=== PATIENT | female | born 1950 | race Caucasian/White ===

== ENCOUNTER → 2016-08-16 11:07 | Day surgery (SDC) | payer BC ==
[~2016-08-16 11:07] MED LIST: Lidocain 1% EPI 1:100,000 * 30 ML MDV ONE; Sodium Bicarbonate 8.4% SYR* 10 ML SYRINGE ONE
[2016-08-16 13:21] VITALS: BP 152/63
--- NOTE | 2016-08-17 02:16 | OP ---
DATE OF OPERATION: 08/16/16 [facility] DATE OF : 54 SURGEON: Anthony Eduardo MD PV INSTALLER TECH: SNOW Mota ANESTHESIOLOGIST: None. ANESTHESIA: Local only with 1% lidocaine with epinephrine. PRE-OP DIAGNOSIS: Right middle trigger finger. POST-OP DIAGNOSIS: Right middle trigger finger. OPERATIVE PROCEDURE: Right middle finger A1 Leeanne release. INDICATIONS: Kailyn is a 66-year-old female. She has had a couple of years of triggering in the finger. She has failed to respond to nonoperative treatment. We talked about risks and benefits and she desired to proceed with A1 leeanne release of the right middle finger. ESTIMATED BLOOD LOSS: 5 mL. COMPLICATIONS: None. FINDINGS: As expected. DESCRIPTION OF PROCEDURE: Kailyn was seen in the preoperative holding area and the correct side and site were marked. We had a time-out and then I injected the operative area with 1% lidocaine with epinephrine. We then came back to the operating room about 10 to 15 minutes later and the arm was prepped and draped in the usual fashion and a formal time-out was performed. A 1 cm longitudinal incision was made over the A1 leeanne of the right middle finger. The tenotomy scissors were used to bluntly dissect the soft tissue off of the flexor tendon sheath. Ragnell retractors were used to expose the sheath and then the 15 blade was used to longitudinally incise the A1 leeanne. The release was extended a little proximally and distally with the tenotomy scissors. We then had her flex and extend the finger many times to see for any clicking or catching. We cannot induce any triggering. We then went ahead and irrigated the wound and closed it with some 5-0 nylon suture. Wound was dressed with Xeroform, 4x4, and a Coban dressing. She was taken to recovery room in stable condition. [id number]/[facility] #: [id number] [facility] HEALTH SYSTEMGiulia
== END | disposition home or self-care (01) ==
LOC: OREAST 11:07
PROVIDERS: ATTEND Orthopaedic Surgery Hand Surgery
DX: M65.331 Trigger finger, right middle finger (principal)

== ENCOUNTER 2019-02-26 16:36 | Emergency (ER) | payer BC ==
[2019-02-26 17:38] VITALS: BP 143/70
[2019-02-26] MEDS ORDERED: Tetan/Diph/Pertus SYR(Tdap)* 0.5 ML SYR(BOOSTRIX) use SYR contains LATEX IM ONE (17:39)
--- NOTE | 2019-02-26 17:48 | UC ---
Laceration HPI - HPI Summary HPI Summary: 68 yo female presents with right index finger laceration. She tells me that she was closing a lid to a metal box at [facility] and her finger got caught in the lid - sustained a laceration to the dorsal aspect of her right index finger. Unsure date of her last tetanus. She bandaged the area with several band-aids and came to - History Of Current Complaint Chief Complaint: UCLaceration Stated Complaint: FINGER LAC Time Seen by Provider: 02/26/19 17:40 Hx Obtained From: Patient Laceration Location: Finger Onset/Duration: Sudden Onset Severity: Mild Pain Intensity: 2 Pain Scale Used: 0-10 Numeric - Allergies/Home Medications Allergies/Adverse Reactions: Allergies Allergy/AdvReac Type Severity Reaction Status Date / Time No Known Allergies Allergy Verified 02/26/19 17:38 PMH/Surg Hx/FS Hx/Imm Hx Cardiovascular History: Hypertension - Surgical History Surgical History: Yes Surgery Procedure, Year, and Place: hysterectomy - Family History Known Family History: Positive: Non-Contributory - Social History Lives: With Family Alcohol Use: Occasionally Substance Use Type: None Smoking Status (MU): Former Smoker Type: Cigarettes Length of Time of Smoking/Using Tobacco: a few times as a kid Have You Smoked in the Last Year: No Household Exposure Type: Cigarettes - Immunization History Most Recent Tetanus Shot: unknown Review of Systems All Other Systems Reviewed And Are Negative: Yes Constitutional: Positive: Negative Skin: Positive: Other - Laceration right index finger Respiratory: Positive: Negative Cardiovascular: Positive: Negative Neurovascular: Positive: Negative Musculoskeletal: Positive: Negative Neurological: Positive: Negative Psychological: Positive: Negative Physical Exam - Summary Physical Exam Summary: GENERAL: NAD. WDWN. No pain distress. SKIN: RIGHT INDEX FINGER: dorsal aspect overlying DIP 5mm superficial linear laceration just through the epidermis. Good approximation at rest. Clean appearing. No FB. CHEST: No accessory muscle use. Breathing comfortably and in no distress. CV: Pulses intact. Cap refill <2seconds MSK: FROM right index finger DIP, PIP, and MCP. NEURO: Alert. PSYCH: Age appropriate behavior. Triage Information Reviewed: Yes Vital Signs: Initial Vital Signs Temp 99.1 F 02/26/19 17:35 Pulse 74 02/26/19 17:35 Resp 16 02/26/19 17:35 BP 143/70 08/12/19 17:35 Pulse Ox 99 02/26/19 17:35 Vital Signs Reviewed: Yes Laceration Repair - Laceration Repair 1 Description: Linear Laceration Size After Repair: Length (cm) - 0.5 Modified For Repair: No Cleansing Completed Via Routine Prep: Yes Closure Material: Skin Adhesive Closure Method: Single Layer Suture Of: Skin Laceration Course/Dx - Course/Dx Course Of Treatment: Laceration was cleansed with NS. Laceration well approximated at rest, therefore dermabond applied. Dressed with a band-aid. Pt is unsure the date of her last tetanus, but prefers to call her PCP in the morning and will update if needed. - Diagnosis Provider Diagnosis: Laceration of right index finger Discharge - Sign-Out/Discharge Documenting (check all that apply): Patient Departure All imaging exams completed and their final reports reviewed: No Studies - Discharge Plan Condition: Stable Disposition: HOME Patient Education Materials: Skin Adhesive Care (ED) Referrals: Rojas Merino MD [Primary Care Provider] - Additional Instructions: If you develop a fever, shortness of breath, chest pain, new or worsening symptoms - please call your PCP or go to the ED immediately. Your blood pressure was high at todays visit. Please see your primary provider within 4 weeks for recheck and re-evaluation. Change the bandaid daily until well healed (likely 3-5 days) Please check with your PCP tomorrow about your tetanus shot and update this if needed - Billing Disposition and Condition Condition: STABLE Disposition: Home
== END 2019-02-26 18:00 | disposition home or self-care (01) ==
LOC: UCEAST 16:36
DX: S61.210A Laceration without foreign body of right index finger without damage to nail, initial encounter (principal); W26.8XXA Contact with other sharp object(s), not elsewhere classified, initial encounter; Y92.89 Other specified places as the place of occurrence of the external cause; I10 Essential (primary) hypertension; Z87.891 Personal history of nicotine dependence
CPT/HCPCS: 12001; 99211; G0463